=== PATIENT | female | born 1950 ===

== ENCOUNTER 2018-10-06 23:55 | Observation (INO) | payer OTHER ==
[2018-10-07 00:25] LABS: BASO # 0.1 K/uL (0.0-0.2); BASO % 1.5 % (0.0-2.0); EOS # 0.1 K/uL (0.0-0.7); EOS % 1.6 % (0.0-4.0); HEMOGLOBIN 13.3 g/dL (11.0-16.0); LYMPH # 2.5 K/uL (1.0-4.3); LYMPH % 34.8 % (20.0-40.0); MEAN CELL VOLUME 87.5 fL (81.0-99.0); MEAN CORPUSCULAR HEMOGLOBIN 29.6 pg (27.0-31.0); MEAN CORPUSCULAR HGB CONC 33.8 g/dL (33.0-37.0); MEAN PLATELET VOLUME 9.2 fL (7.2-11.7); MONO # 0.6 K/uL (0.0-0.8); NEUT # 3.8 K/uL (1.8-7.0); NEUT % 54.1 % (50.0-75.0); NRBC % 0.1 % (0.0-2.0); RBC 4.51 Mil/uL (3.80-5.20); RED CELL DISTRIBUTION WIDTH 14.2 % (11.5-14.5); WHITE BLOOD COUNT 7.1 K/uL (4.8-10.8)
[2018-10-07 00:33] LABS: ALB/GLOB RATIO 1.3 (1.0-2.1); ALT/SGPT 61 U/L (9-52); AST/SGOT 36 U/L (14-36); BLOOD UREA NITROGEN 29 mg/dL (7-17); CALCIUM 9.4 mg/dl (8.6-10.4); GFR NON-AFRICAN AMERICAN > 60
[2018-10-07 00:36] LABS: PARTIAL THROMBOPLASTIN TIME 29.1 SECONDS (21-34); PROTHROMBIN TIME 10.7 SECONDS (9.7-12.2)
--- NOTE | 2018-10-07 01:27 | C.PDOC ---
History Of Present Illness 68 y/o female, with history of hypertension, is brought in by ambulance for chest pain and subjective dyspnea that started 2 hours prior to arrival. EMS arrived, patient was given aspirin and nitro with improvement. Patient is a poor historian. States she has cardiac cath done several years ago, unclear of results. Patient cannot characterize the pain. Time Seen by Provider: 10/07/18 00:05 Chief Complaint (Nursing): Chest Pain History Per: Patient History/Exam Limitations: no limitations Onset/Duration Of Symptoms: Hrs Current Symptoms Are (Timing): Still Present Past Medical History Reviewed: Historical Data, Nursing Documentation, Vital Signs Vital Signs: Last Vital Signs Temp 98.1 F 10/06/18 23:57 Pulse 52 L 10/07/18 01:02 Resp 18 10/07/18 01:02 BP 121/71 10/07/18 01:02 Pulse Ox 99 10/07/18 01:02 Primary Care Provider: Nando Camarillo - Medical History PMH: HTN Denies: Chronic Kidney Disease Family History: States: No Known Family Hx - Social History Hx Alcohol Use: No Hx Substance Use: No - Immunization History Hx Tetanus Toxoid Vaccination: Yes Hx Influenza Vaccination: Yes Hx Pneumococcal Vaccination: Yes Review Of Systems Except As Marked, All Systems Reviewed And Found Negative. Constitutional: Negative for: Fever, Chills, Sweats Cardiovascular: Positive for: Chest Pain. Negative for: Palpitations, Light H eadedness Respiratory: Negative for: Cough, Shortness of Breath Gastrointestinal: Negative for: Nausea, Vomiting Neurological: Negative for: Dizziness Physical Exam - Physical Exam Appears: Non-toxic, No Acute Distress Skin: Warm, Dry Head: Normacephalic Eye(s): bilateral: Normal Inspection Oral Mucosa: Moist Neck: Supple Cardiovascular: Rhythm Regular, No Murmur Respiratory: Normal Breath Sounds, No Rales, No Rhonchi, No Wheezing Gastrointestinal/Abdominal: Soft, No Tenderness Extremity: Bilateral: Atraumatic, Normal ROM Neurological/Psych: Oriented x3, Normal Speech ED Course And Treatment - Laboratory Results Result Diagrams: 10/08/18 07:11 10/08/18 07:11 Lab Results: PT 10.7 SECONDS (9.7-12.2) 10/07/18 00:17 INR 1.0 10/07/18 00:17 APTT 29.1 SECONDS (21-34) 10/07/18 00:17 Troponin I 0.0510 ng/mL (0.00-0.120) 10/07/18 00:17 Total Bilirubin 0.6 mg/dL (0.2-1.3) 10/07/18 00:17 AST 36 U/L (14-36) 10/07/18 00:17 ALT 61 U/L (9-52) H 10/07/18 00:17 Alkaline Phosphatase 160 U/L (38-126) H 10/07/18 00:17 Total Protein 7.1 g/dL (6.3-8.3) 10/07/18 00:17 Albumin 4.0 g/dL (3.5-5.0) 10/07/18 00:17 Globulin 3.1 gm/dL (2.2-3.9) 10/07/18 00:17 Albumin/Globulin Ratio 1.3 (1.0-2.1) 10/07/18 00:17 ECG: Interpreted By Me, Viewed By Me ECG Rhythm: Sinus Bradycardia Interpretation Of ECG: LVH. Nonspecific ST/T wave changes. No changes from prior. Rate From EC O2 Sat by Pulse Oximetry: 99 (RA) Pulse Ox Interpretation: Normal Medical Decision Making Medical Decision Making: cp ro acs. ekg lvh with repol vs less likely wellens. Plan: --EKG --Labs --Chest XR Repeat EKG, no changes. accepted dr lynne Disposition - Disposition Disposition: HOSPITALIZED Disposition Time: 01:59 Condition: STABLE - Clinical Impression Clinical Impression: Chest pain - Scribe Statement The provider has reviewed the documentation as recorded by the Mickie Rae Provider Attestation: All medical record entries made by the Mickie were at my direction and personally dictated by me. I have reviewed the chart and agree that the record accurately reflects my personal performance of the history, physical exam, medical decision making, and the department course for this patient. I have also personally directed, reviewed, and agree with the discharge instructions and disposition.
[2018-10-07 08:07] LABS: CK-MB 2.28 ng/mL (0.0-3.38); TROPONIN I 0.068 ng/mL (0.00-0.120)
--- NOTE | 2018-10-07 08:28 | RAD ---
Chest x-ray single frontal view HISTORY: Chest pain. COMPARISON: None available. FINDINGS: Diffuse increased interstitial lung markings which may represent underlying edema and or infiltrate. Tortuous ectatic aorta. Cardiomegaly. Degenerative changes in the spine. Impression: Diffuse increased interstitial lung markings which may represent underlying edema and or infiltrate. Tortuous ectatic aorta. Cardiomegaly.
[2018-10-07] MEDS ORDERED: Potassium Chloride 20 mEq ER Tab PO ONE (10:15)
[2018-10-07 14:10] LABS: CK-MB 1.87 ng/mL (0.0-3.38); TROPONIN I 0.045 ng/mL (0.00-0.120)
--- NOTE | 2018-10-07 19:42 | CP.PCM.HP ---
Present on Admission - Present on Admission Any Indicators Present on Admission: No Past Patient History - Past Social History Smoking Status: Never Smoked - CARDIAC Hx Hypertension: Yes - PULMONARY Hx Respiratory Disorders: No - HEENT Hx HEENT Problems: No - RENAL Hx Chronic Kidney Disease: No - HEMATOLOGICAL/ONCOLOGICAL Hx Blood Disorders: No - INTEGUMENTARY Hx Dermatological Problems: No - MUSCULOSKELETAL/RHEUMATOLOGICAL Hx Musculoskeletal Disorders: No Hx Falls: No - GASTROINTESTINAL Hx Gastrointestinal Disorders: No - GENITOURINARY/GYNECOLOGICAL Hx Genitourinary Disorders: No - PSYCHIATRIC Hx Substance Use: No - SURGICAL HISTORY Hx Surgeries: Yes Other/Comment: facial sx - ANESTHESIA Hx Anesthesia: Yes Hx Anesthesia Reactions: No Meds Allergies/Adverse Reactions: Allergies Allergy/AdvReac Type Severity Reaction Status Date / Time No Known Allergies Allergy Unverified 10/07/18 00:02 Results - Vital Signs Recent Vital Signs: Last Vital Signs Temp 97.4 F L 10/07/18 15:00 Pulse 60 10/07/18 16:00 Resp 20 10/07/18 15:00 BP 125/71 10/07/18 15:00 Pulse Ox 94 L 10/07/18 15:00 - Labs Result Diagrams: 10/07/18 00:17 10/07/18 00:17 Labs: Laboratory Results - last 24 hr 10/07/18 10/07/18 10/07/18 00:17 00:17 00:17 WBC 7.1 RBC 4.51 Hgb 13.3 Hct 39.5 MCV 87.5 MCH 29.6 MCHC 33.8 RDW 14.2 Plt Count 207 MPV 9.2 Neut % (Auto) 54.1 Lymph % (Auto) 34.8 [place] % (Auto) 8.0 Eos % (Auto) 1.6 Baso % (Auto) 1.5 Neut # (Auto) 3.8 Lymph # (Auto) 2.5 [place] # (Auto) 0.6 Eos # (Auto) 0.1 Baso # (Auto) 0.1 PT 10.7 INR 1.0 APTT 29.1 Sodium 136 Potassium 3.5 L Chloride 97 L Carbon Dioxide 28 Anion Gap 14 BUN 29 H Creatinine 0.9 Est GFR ( Amer) > 60 Est GFR (Non-Af Amer) > 60 Random Glucose 124 H Calcium 9.4 Total Bilirubin 0.6 AST 36 ALT 61 H Alkaline Phosphatase 160 H Total Creatine Kinase CK-MB (Mass) Troponin I 0.0510 Total Protein 7.1 Albumin 4.0 Globulin 3.1 Albumin/Globulin Ratio 1.3 TSH 3rd Generation 10/07/18 10/07/18 10/07/18 07:15 13:32 15:59 WBC RBC Hgb Hct MCV MCH MCHC RDW Plt Count MPV Neut % (Auto) Lymph % (Auto) [place] % (Auto) Eos % (Auto) Baso % (Auto) Neut # (Auto) Lymph # (Auto) [place] # (Auto) Eos # (Auto) Baso # (Auto) PT INR APTT Sodium Potassium Chloride Carbon Dioxide Anion Gap BUN Creatinine Est GFR ( Amer) Est GFR (Non-Af Amer) Random Glucose Calcium Total Bilirubin AST ALT Alkaline Phosphatase Total Creatine Kinase 59 52 CK-MB (Mass) 2.28 1.87 Troponin I 0.0680 0.0450 Total Protein Albumin Globulin Albumin/Globulin Ratio TSH 3rd Generation 1.65
--- NOTE | 2018-10-07 22:13 | CARD ---
APPROVED REPORT Date of service: 10/07/2018 EXAM: Two-dimensional and M-mode echocardiogram with Doppler and color Doppler. Other Information Quality : AverageRhythm : NSR INDICATION Chest Pain 2D DIMENSIONS LA Sxopht98 (18-58mL) M-Mode DIMENSIONS Left Atrium (MM)3.43 (2.5-4.0cm)IVSd0.96 (0.7-1.1cm) Aortic Root2.58 (2.2-3.7cm)LVDd4.50 (4.0-5.6cm) PWd1.00 (0.7-1.1cm)FS (%) 26 % LVDs3.32 (2.0-3.8cm)LVEF (%)52 (>50%) Aortic Valve AoV Peak Aazftobh766.8cm/Brian Peak GR.4mmHg Mitral Valve MV E Zmyjqdoe80.1cm/sMV A Leesclrc10.3cm/sE/A ratio1.8 TDI Lateral E' Peak V5.77cm/sMedial E' Peak V3.38cm/sE/Lateral E'14.1 E/Medial E'24.0 Tricuspid Valve TR Peak Fdmsgptp017af/sTR Peak Gr.63qrNxREMP73bzKr LEFT VENTRICLE The left ventricle is normal size. There is normal left ventricular wall thickness. Left ventricle systolic function is normal. The Ejection Fraction is 50-55%. There is normal LV segmental wall motion. The left ventricular diastolic function is normal. RIGHT VENTRICLE The right ventricle is normal size. There is normal right ventricular wall thickness. The right ventricular systolic function is normal. ATRIA The left atrium size is normal. The right atrium size is normal. The interatrial septum is intact with no evidence for an atrial septal defect. AORTIC VALVE The aortic valve is normal in structure. No aortic regurgitation is present. There is no aortic valvular stenosis. MITRAL VALVE The mitral valve is normal in structure. There is no evidence of mitral valve prolapse. There is no mitral valve stenosis. There is no mitral valve regurgitation noted. TRICUSPID VALVE The tricuspid valve is normal in structure. There is trace tricuspid regurgitation. Right ventricular systolic pressure is estimated at less than 30 mmHg. There is no pulmonary hypertension. There is no tricuspid valve stenosis. PULMONIC VALVE The pulmonic valve is not well visualized. There is no pulmonic valvular regurgitation. GREAT VESSELS The aortic root is normal in size. PERICARDIAL EFFUSION There is no significant pericardial effusion. <Conclusion> Left ventricle systolic function is normal. The Ejection Fraction is 50-55%. No aortic regurgitation is present. There is no mitral valve regurgitation noted. There is trace tricuspid regurgitation. There is no pulmonary hypertension. There is no pulmonic valvular regurgitation.
--- NOTE | 2018-10-08 03:50 | HP ---
CHIEF COMPLAINT: Chest pain. HISTORY OF PRESENT ILLNESS: This is a 68-year-old female with history of tachycardia, hypertension, anxiety. She denies any history of smoking, diabetes, hyperlipidemia. She is compliant with her diet, medication, and followup. She was brought by ambulance 2 hours prior to arrival. The patient developed left precordial chest pain, dull, nonradiating, not associated with diaphoresis or dizziness, nonexertional. The patient is worried about her symptoms. She is a poor historian. According to her, she had a cardiac cath done several years ago. She is not short of breath . She denies any dysuria, hematuria, pyuria. She denies any sneezing, itchy eyes, itchy nose. She denies any cough, sore throat. She denies any dyspepsia. She denies any nausea, vomiting, diarrhea. PAST MEDICAL HISTORY: Hypertension, tachycardia. SOCIAL HISTORY: She is nonsmoker, non-EtOH user. FAMILY HISTORY: Negative for any heart problems. CURRENT MEDICATIONS: Tylenol and aspirin. PHYSICAL EXAMINATION: GENERAL: An elderly female, in no acute distress. VITAL SIGNS: Blood pressure 123/73, pulse 52, respiratory rate 18, temperature 97.9. SKIN: Warm. Good turgor. No bruises. No purpura. No petechiae. No ecchymosis. HEENT: Atraumatic, normocephalic. Negative pallor. Negative jaundice. Extraocular movements are intact. NECK: Supple. No JVD. No lymph node. No thyromegaly. CHEST WALL: Bilateral symmetrical expansion. No tenderness. LUNGS: Clear. No rales. No rhonchi. CARDIOVASCULAR SYSTEM: S1 and S2 regular. No heave, no thrill. ABDOMEN: Soft and nontender. Bowel sounds are positive. EXTREMITIES: No clubbing,cyanosis, or edema. CENTRAL NERVOUS SYSTEM: Awake, alert, and oriented x3. ASSESSMENT: 1. Chest pain. Rule out myocardial infarction. 2. Bradycardia which is most likely beta-kim induced. 3. Hypokalemia. PLAN: Admit. Detailed orders are written. Seen and examined. Renato Lott MD
[2018-10-08 07:24] LABS: BASO # 0.1 K/uL (0.0-0.2); EOS # 0.1 K/uL (0.0-0.7); EOS % 1.9 % (0.0-4.0); HEMOGLOBIN 14.4 g/dL (11.0-16.0); LYMPH % 30.7 % (20.0-40.0); MEAN CELL VOLUME 88.7 fL (81.0-99.0); MEAN CORPUSCULAR HEMOGLOBIN 30.5 pg (27.0-31.0); MEAN CORPUSCULAR HGB CONC 34.4 g/dL (33.0-37.0); MEAN PLATELET VOLUME 9.3 fL (7.2-11.7); MONO # 0.5 K/uL (0.0-0.8); MONO % 7.5 % (0.0-10.0); NEUT # 3.8 K/uL (1.8-7.0); NEUT % 58.9 % (50.0-75.0); NRBC % 0.1 % (0.0-2.0); RBC 4.73 Mil/uL (3.80-5.20); RED CELL DISTRIBUTION WIDTH 13.9 % (11.5-14.5); WHITE BLOOD COUNT 6.4 K/uL (4.8-10.8)
[2018-10-08 07:57] VITALS: BP 146/84; PULSE 50; RESP 18; TEMP 98
[2018-10-08 08:00] LABS: ALB/GLOB RATIO 1.5 (1.0-2.1); ALT/SGPT 44 U/L (9-52); AST/SGOT 35 U/L (14-36); BLOOD UREA NITROGEN 23 mg/dL (7-17); CALCIUM 9.2 mg/dl (8.6-10.4); GFR NON-AFRICAN AMERICAN > 60
--- NOTE | 2018-10-08 15:09 | CP.PCM.CON ---
History of Present Illness - History of Present Illness History of Present Illness: 68 y/o female, with history of hypertension, is brought in by ambulance for chest pain and subjective dyspnea that started 2 hours prior to arrival. EMS arrived, patient was given aspirin and nitro with improvement. Patient is a poor historian. States she has cardiac cath done several years ago, unclear of results. Patient cannot characterize the pain. Chief Complaint (Nursing): Chest Pain History Per: Patient History/Exam Limitations: no limitations Onset/Duration Of Symptoms: Hrs Current Symptoms Are (Timing): Still Present Past Medical History Reviewed: Historical Data, Nursing Documentation, Vital Signs Vital Signs: Last Vital Signs Temp 98.1 F 10/06/18 23:57 Pulse 52 L 10/07/18 01:02 Resp 18 10/07/18 01:02 BP 121/71 10/07/18 01:02 Pulse Ox 99 10/07/18 01:02 Primary Care Provider: Nando Camarillo - Medical History PMH: HTN Denies: Chronic Kidney Disease Family History: States: No Known Family Hx - Social History Hx Alcohol Use: No Hx Substance Use: No - Immunization History Hx Tetanus Toxoid Vaccination: Yes Hx Influenza Vaccination: Yes Hx Pneumococcal Vaccination: Yes Review Of Systems Except As Marked, All Systems Reviewed And Found Negative. Constitutional: Negative for: Fever, Chills, Sweats Cardiovascular: Positive for: Chest Pain. Negative for: Palpitations, Light Headedness Respiratory: Negative for: Cough, Shortness of Breath Gastrointestinal: Negative for: Nausea, Vomiting Neurological: Negative for: Dizziness Physical Exam - Physical Exam Appears: Non-toxic, No Acute Distress Skin: Warm, Dry Head: Normacephalic Eye(s): bilateral: Normal Inspection Oral Mucosa: Moist Neck: Supple Cardiovascular: Rhythm Regular, No Murmur Respiratory: Normal Breath Sounds, No Rales, No Rhonchi, No Wheezing Gastrointestinal/Abdominal: Soft, No Tenderness Extremity: Bilateral: Atraumatic, Normal ROM Neurological/Psych: Oriented x3, Normal Speech Past Patient History - Past Social History Smoking Status: Never Smoked - CARDIAC Hx Hypertension: Yes - PULMONARY Hx Respiratory Disorders: No - HEENT Hx HEENT Problems: No - RENAL Hx Chronic Kidney Disease: No - HEMATOLOGICAL/ONCOLOGICAL Hx Blood Disorders: No - INTEGUMENTARY Hx Dermatological Problems: No - MUSCULOSKELETAL/RHEUMATOLOGICAL Hx Musculoskeletal Disorders: No Hx Falls: No - GASTROINTESTINAL Hx Gastrointestinal Disorders: No - GENITOURINARY/GYNECOLOGICAL Hx Genitourinary Disorders: No - PSYCHIATRIC Hx Substance Use: No - SURGICAL HISTORY Hx Surgeries: Yes Other/Comment: facial sx - ANESTHESIA Hx Anesthesia: Yes Hx Anesthesia Reactions: No Meds Home Medications: Home Medication List Medication Instructions Recorded Confirmed Type Rosuvastatin Calcium [Crestor] 10 mg PO HS 30 Days #30 tab 10/08/18 Rx Allergies/Adverse Reactions: Allergies Allergy/AdvReac Type Severity Reaction Status Date / Time No Known Allergies Allergy Unverified 10/07/18 00:02 - Medications Medications: Current Medications Aspirin (Aspirin Chewable) 81 mg PO DAILY [facility] Last Admin: 10/08/18 09:35 Dose: 81 mg Heparin Sodium (Porcine) (Heparin) 5,000 units SC Q8 [facility] Last Admin: 10/08/18 13:27 Dose: 5,000 units Rosuvastatin Calcium (Crestor) 10 mg PO HS [facility] Last Admin: 10/07/18 21:18 Dose: 10 mg Results - Vital Signs Recent Vital Signs: Last Vital Signs Temp 98.0 F 10/08/18 07:10 Pulse 50 L 10/08/18 07:10 Resp 18 10/08/18 07:10 BP 146/84 10/08/18 07:10 Pulse Ox 98 10/08/18 07:10 - Labs Result Diagrams: 10/08/18 07:11 10/08/18 07:11 Labs: Laboratory Results - last 24 hr 10/07/18 10/08/18 10/08/18 15:59 07:11 07:11 WBC 6.4 RBC 4.73 Hgb 14.4 Hct 41.9 MCV 88.7 MCH 30.5 MCHC 34.4 RDW 13.9 Plt Count 204 MPV 9.3 Neut % (Auto) 58.9 Lymph % (Auto) 30.7 [place] % (Auto) 7.5 Eos % (Auto) 1.9 Baso % (Auto) 1.0 Neut # (Auto) 3.8 Lymph # (Auto) 2.0 [place] # (Auto) 0.5 Eos # (Auto) 0.1 Baso # (Auto) 0.1 Sodium 138 Potassium 4.2 Chloride 102 Carbon Dioxide 30 Anion Gap 11 BUN 23 H Creatinine 0.9 Est GFR ( Amer) > 60 Est GFR (Non-Af Amer) > 60 Random Glucose 96 D Calcium 9.2 Total Bilirubin 1.0 AST 35 ALT 44 Alkaline Phosphatase 159 H Total Protein 6.7 Albumin 4.0 Globulin 2.7 Albumin/Globulin Ratio 1.5 TSH 3rd Generation 1.65 Assessment & Plan - Assessment and Plan (Free Text) Assessment: 68 F with hx of CKD, HTN and chest pain Stress test Tuesday am ECHO: Normal EF
[2018-10-08 20:03] VITALS: O2SAT 99
--- NOTE | 2018-10-08 21:04 | CP.PCM.DIS ---
Provider - Provider Date of Admission: 10/07/18 01:21 Attending physician: Renato Lott MD Consults: 10/07/18 08:00 Cardiology Consult Routine Comment: CP Consulting Provider: Prabhakar Mueller Consulting Physician: Prabhakar Mueller Reason for Consult: CP Time Spent in preparation of Discharge (in minutes): 45 Hospital Course - Lab Results Lab Results: Most Recent Lab Values WBC 6.4 K/uL (4.8-10.8) 10/08/18 07:11 RBC 4.73 Mil/uL (3.80-5.20) 10/08/18 07:11 Hgb 14.4 g/dL (11.0-16.0) 10/08/18 07:11 Hct 41.9 % (34.0-47.0) 10/08/18 07:11 MCV 88.7 fL (81.0-99.0) 10/08/18 07:11 MCH 30.5 pg (27.0-31.0) 10/08/18 07:11 MCHC 34.4 g/dL (33.0-37.0) 10/08/18 07:11 RDW 13.9 % (11.5-14.5) 10/08/18 07:11 Plt Count 204 K/uL (130-400) 10/08/18 07:11 MPV 9.3 fL (7.2-11.7) 10/08/18 07:11 Neut % (Auto) 58.9 % (50.0-75.0) 10/08/18 07:11 Lymph % (Auto) 30.7 % (20.0-40.0) 10/08/18 07:11 [place] % (Auto) 7.5 % (0.0-10.0) 10/08/18 07:11 Eos % (Auto) 1.9 % (0.0-4.0) 10/08/18 07:11 Baso % (Auto) 1.0 % (0.0-2.0) 10/08/18 07:11 Neut # (Auto) 3.8 K/uL (1.8-7.0) 10/08/18 07:11 Lymph # (Auto) 2.0 K/uL (1.0-4.3) 10/08/18 07:11 [place] # (Auto) 0.5 K/uL (0.0-0.8) 10/08/18 07:11 Eos # (Auto) 0.1 K/uL (0.0-0.7) 10/08/18 07:11 Baso # (Auto) 0.1 K/uL (0.0-0.2) 10/08/18 07:11 PT 10.7 SECONDS (9.7-12.2) 10/07/18 00:17 INR 1.0 10/07/18 00:17 APTT 29.1 SECONDS (21-34) 10/07/18 00:17 Sodium 138 mmol/L (132-148) 10/08/18 07:11 Potassium 4.2 mmol/L (3.6-5.2) 10/08/18 07:11 Chloride 102 mmol/L (98-107) 10/08/18 07:11 Carbon Dioxide 30 mmol/L (22-30) 10/08/18 07:11 Anion Gap 11 (10-20) 10/08/18 07:11 BUN 23 mg/dL (7-17) H 10/08/18 07:11 Creatinine 0.9 mg/dL (0.7-1.2) 10/08/18 07:11 Est GFR ( Amer) > 60 10/08/18 07:11 Est GFR (Non-Af Amer) > 60 10/08/18 07:11 Random Glucose 96 mg/dL (65-105) D 10/08/18 07:11 Calcium 9.2 mg/dl (8.6-10.4) 10/08/18 07:11 Total Bilirubin 1.0 mg/dL (0.2-1.3) 10/08/18 07:11 AST 35 U/L (14-36) 10/08/18 07:11 ALT 44 U/L (9-52) 10/08/18 07:11 Alkaline Phosphatase 159 U/L (38-126) H 10/08/18 07:11 Total Creatine Kinase 52 U/L (30-135) 10/07/18 13:32 CK-MB (Mass) 1.87 ng/mL (0.0-3.38) 10/07/18 13:32 Troponin I 0.0450 ng/mL (0.00-0.120) 10/07/18 13:32 Total Protein 6.7 g/dL (6.3-8.3) 10/08/18 07:11 Albumin 4.0 g/dL (3.5-5.0) 10/08/18 07:11 Globulin 2.7 gm/dL (2.2-3.9) 10/08/18 07:11 Albumin/Globulin Ratio 1.5 (1.0-2.1) 10/08/18 07:11 TSH 3rd Generation 1.65 mIU/L (0.46-4.68) 10/07/18 15:59 Discharge Plan - Discharge Medications Prescriptions: Rosuvastatin Calcium [Crestor] 10 mg PO HS 30 Days #30 tab - Follow Up Plan Condition: STABLE Disposition: HOME/ ROUTINE Instructions: Chest Pain
--- NOTE | 2018-10-09 03:56 | DS ---
CHIEF COMPLAINT: History of chest pain. DISCHARGE DIAGNOSES: 1. Noncoronary chest pain. 2. Beta kim-induced bradycardia. 3. Hypertension. HOSPITAL COURSE: This is a 68-year-old white female with history of tachycardia. She is on beta blockers and the patient has been prescribed atenolol and the patient developed chest pain on the day of admission. She came to emergency room, ND was ruled out by three sets of negative cardiac enzymes. Her TSH is normal. She remained bradycardic which improved once we discontinued atenolol. The patient feels better. Afebrile. No chest pain. EKG is normal except bradycardia. Her chest x-ray is negative. Echocardiogram is normal. The patient is stable for discharge. The patient will have outpatient followup with her primary doctor and if chest pain persists, she will be referred to Cardiology. The patient has been given clear instructions. The patient is discharged. Outpatient followup. Renato Lott MD
--- NOTE | 2018-10-09 15:36 | CARD ---
APPROVED REPORT Date of service: 10/07/2018 EKG Measurement Heart [id number] [place] [id number] <Conclusion> Sinus bradycardia with sinus arrhythmia Left ventricular hypertrophy with repolarization abnormality Abnormal ECG
--- NOTE | 2018-10-09 15:57 | CARD ---
APPROVED REPORT Date of service: 10/07/2018 EKG Measurement Heart [id number] [place] [id number] <Conclusion> Sinus bradycardia with premature supraventricular complexes Left ventricular hypertrophy with repolarization abnormality Abnormal ECG
== END 2018-10-08 15:46 | disposition home or self-care (01) ==
LOC: C.ER 23:55 → C.9E 10-07 01:21 → C.6T 10-07 01:45
PROVIDERS: ADMIT Internal Medicine; ATTEND Internal Medicine
DX: R07.89 Other chest pain (principal); R00.1 Bradycardia, unspecified; T44.7X5A Adverse effect of beta-adrenoreceptor antagonists, initial encounter; I10 Essential (primary) hypertension; F41.9 Anxiety disorder, unspecified; Z79.899 Other long term (current) drug therapy
CPT/HCPCS: 36415; 71045; 80053; 84443; 84484; 85025; 85610; 85730; 93005; 93306; 99285; G0378; J1644